=== PATIENT | female | born 1975 | race Caucasian/White ===

== ENCOUNTER → 2019-01-14 | Outpatient (CLI) | payer OTHER | LOC: COL.RAD 10:09 | DX: G95.20 Unspecified cord compression (principal); M40.209 Unspecified kyphosis, site unspecified; M48.02 Spinal stenosis, cervical region; M54.12 Radiculopathy, cervical region; Z98.1 Arthrodesis status ==

== ENCOUNTER → 2019-05-19 | Outpatient (CLI) | payer OTHER | LOC: COL.RAD 10:45 | DX: G95.20 Unspecified cord compression (principal); M40.209 Unspecified kyphosis, site unspecified; M48.02 Spinal stenosis, cervical region; M54.12 Radiculopathy, cervical region; Z98.1 Arthrodesis status ==

== ENCOUNTER 2020-08-01 16:35 | Emergency (ER) | payer OTHER ==
[2020-08-01 16:36] VITALS: TEMP 98.9
[2020-08-01 16:59] LABS: BASO % 0.3 % (0.0-2.0); EOS # 0.2 (0.0-0.7); EOS % 1.3 % (0-4.0); GRAN # 7.6 (1.4-6.5); GRAN % 64.9 % (42.2-75.2); HEMOGLOBIN 15.1 g/dl (12.5-16.0); LYMPH % 25.8 % (20.0-51.0); MEAN CELL VOLUME 94 fl (80.0-100.0); MEAN CORPUSCULAR HEMOGLOBIN 31 pg (27.0-31.0); MEAN CORPUSCULAR HGB CONC 33 g/dl (33.0-37.0); MEAN PLATELET VOLUME 10.1 fl (7.4-10.4); MONO # 0.9 (0.1-0.6); MONO % 7.4 % (1.7-9.3); PLATELET COUNT 215 K/mm3 (130-400); RED BLOOD COUNT 4.92 M/mm3 (4.10-5.30); REDCELL DISTRIBUTION WIDTH-CV 12.8 % (11.5-14.5)
[2020-08-01 17:09] LABS: ALBUMIN 4.2 gm/dL (3.5-5.0); BILIRUBIN,TOTAL 0.5 mg/dL (0.0-1.0); CALCIUM 9.4 mg/dL (8.4-10.2); CREATININE, serum 0.7 (0.52-1.25); POTASSIUM 3.5 mmol/L (3.4-5.0); TOTAL PROTEIN 7.9 gm/dL (6.4-8.2)
[2020-08-01] MEDS ORDERED: AMOXICILLIN875 MG PO (19:18)
[2020-08-01] MEDS ORDERED: ZOFRAN ODT4 MG PO (19:18)
[2020-08-01] MEDS ORDERED: DRAMAMINE LESS25 MG PO (19:18)
[2020-08-01 20:00] VITALS: BP 132/79; PULSE 79
== END 2020-08-01 20:00 | disposition home or self-care (01) ==
LOC: COL.ER 16:35
PROVIDERS: Physician Assistant
DX: H66.91 Otitis media, unspecified, right ear (principal); R11.2 Nausea with vomiting, unspecified; I10 Essential (primary) hypertension; Z32.02 Encounter for pregnancy test, result negative; Z88.6 Allergy status to analgesic agent
CPT/HCPCS: J0780; J2550; J7030